=== PATIENT | male | born 1985 | race African-American/Black ===

== ENCOUNTER 2019-07-28 23:08 | Emergency (ER) | payer OTHER ==
[~2019-07-28] VITALS: Ht 180.3 cm; Wt 110.2 kg
[~2019-07-28 23:08] MED LIST: TRAZ-214 PO
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
--- NOTE | 2019-07-28 23:24 | NUR ---
[employer] AT BEDSIDE
[2019-07-28] MEDS ORDERED: TDAP [DIPH/PERTUSSIS/TET] 0.5 ML VIAL IM ONE (23:30)
[2019-07-28] MEDS ORDERED: CEFAZOLIN 1 GM VIAL IM ONE (23:30)
--- NOTE | 2019-07-29 01:04 | NUR ---
ANCEF NOT AVAILABLE. CANCELLED ANCEF AND CHANGED MEDS TO ROCEPHINE 1GM IM X 1. NOTED AND CARRIED OUT
[2019-07-29] MEDS ORDERED: TDAP [DIPH/PERTUSSIS/TET] 0.5 ML VIAL IM ONE (01:06)
[2019-07-29] MEDS ORDERED: CEFTRIAXONE 1 G VIAL ONE (01:06)
[2019-07-29] MEDS ORDERED: LIDOCAINE /MPF 1% VIAL 5 ML VIAL ONE (01:07)
[2019-07-29] MEDS ORDERED: IBUPROFEN 400 MG TABLET ONE (01:21)
--- NOTE | 2019-07-29 01:25 | NUR ---
VERBAL ORDER RECEIVED FROM MD FOR PAIN MEDICATION, IBUPROPHEN 800MG POX 1 DOSE. NOTED AND CARRIED OUT
[2019-07-29] MEDS ORDERED: IBUPROFEN 400 MG TABLET PO ONE (01:30)
[2019-07-29] MEDS ORDERED: CEFTRIAXONE 1 G VIAL IM ONE (01:30)
--- NOTE | 2019-07-29 02:15 | NUR ---
EMT ET BEDSIDE FOR WOUND DRESSING.
--- NOTE | 2019-07-29 03:00 | NUR ---
Patient discharged to home in stable condition. Written and verbal after care instructions given. Patient verbalizes understanding of instruction. Pt ambulatory with a steady gait
[2019-07-29 03:01] VITALS: BP 147/76
== END 2019-07-29 03:03 | disposition home or self-care (01) ==
LOC: ER 23:16
DX: S21.211A Laceration without foreign body of right back wall of thorax without penetration into thoracic cavity, initial encounter (principal); S01.01XA Laceration without foreign body of scalp, initial encounter; I10 Essential (primary) hypertension; K21.9 Gastro-esophageal reflux disease without esophagitis; F32.9 Major depressive disorder, single episode, unspecified; F17.210 Nicotine dependence, cigarettes, uncomplicated; Z98.890 Other specified postprocedural states; Z59.0 Homelessness; Y00.XXXA Assault by blunt object, initial encounter; Y93.89 Activity, other specified; Y92.89 Other specified places as the place of occurrence of the external cause; Y99.8 Other external cause status
CPT/HCPCS: 12002; 70450; 71045; 72128; 72131; 90471; 90715; 96372; 99284; A6403; J0690; J0696; J3490

== ENCOUNTER 2020-01-09 13:48 | Emergency (ER) | payer OTHER ==
[~2020-01-09] VITALS: Ht 170.2 cm; Wt 74.8 kg
[~2020-01-09 13:48] MED LIST changes: -TRAZ-214 PO; +TRAZ-257 PO
--- NOTE | 2020-01-09 14:17 | NUR ---
DR. GALINDO AT [facility] FOR PT EVAL. PT REMOVED FROM ER IN CUSTODY OF DEDRICK AND ADRIEN. AFTER CARE INSTRUCTIONS PROVIDED TO DEDRICK
== END 2020-01-09 14:20 ==
LOC: ER 13:51
DX: S01.01XA Laceration without foreign body of scalp, initial encounter (principal); Z98.890 Other specified postprocedural states; Z59.0 Homelessness; Z79.899 Other long term (current) drug therapy; X58.XXXA Exposure to other specified factors, initial encounter; Y93.89 Activity, other specified; Y92.89 Other specified places as the place of occurrence of the external cause; Y99.8 Other external cause status

== ENCOUNTER 2020-03-23 13:45 | Emergency (ER) | payer OTHER ==
[~2020-03-23] VITALS: Ht 172.7 cm; Wt 99.8 kg
--- NOTE | 2020-03-23 13:55 | NUR ---
patient BIBpd from intermediate, swallowed razor blade, on room air, breathing evenly and unlabored. connected to the monitor and pulse ox. kept comfortable, will continue to monitor accordingly.
--- NOTE | 2020-03-23 14:25 | NUR ---
RN NOTES LAB DRAWN AND SENT TO LAB .
[2020-03-23] MEDS ORDERED: IOHEXOL-300 100 ML VIAL IV ONE (14:34)
[2020-03-23] MEDS ORDERED: IV NS 0.9% 250 ML IV ONE (14:34)
[2020-03-23 15:17] LABS: BASOPHILS % (AUTO) 0.7 % (0.0-2.0); EOSINOPHILS % (AUTO) 0.2 % (0.0-6.0); HEMATOCRIT 38 % (39-51); HEMOGLOBIN 12.3 g/dL (13.5-17.5); LYMPHOCYTES # (AUTO) 0.7 /CMM (0.8-4.8); LYMPHOCYTES % (AUTO) 10.9 % (20.0-44.0); MEAN CORPUSCULAR HGB CONC 33 g/dl (31.0-36.0); MEAN CORPUSCULAR VOLUME 94 fL (80-96); MONOCYTES # (AUTO) 0.4 /CMM (0.1-1.30); MONOCYTES % (AUTO) 6.5 % (2.0-12.0); NEUTROPHILS # (AUTO) 5.3 /CMM (1.8-8.9); NEUTROPHILS % (AUTO) 81.7 % (43.0-81.0); PLATELET COUNT (AUTO) 204 /CMM (150-450); RED BLOOD CELL COUNT(AUTO) 4.01 MIL/uL (4.5-6.0); WHITE BLOOD COUNT (AUTO) 6.5 K/uL (4.3-11.0)
[2020-03-23 15:25] LABS: CALCIUM, SERUM 8.9 mg/dL (8.5-10.1); CREATININE 0.8 mg/dL (0.6-1.3); POTASSIUM 4.4 mmol/L (3.5-5.1)
[2020-03-23 15:30] LABS: ALBUMIN 3.5 g/dL (3.4-5.0); BILIRUBIN,DIRECT 0.1 mg/dL (0.0-0.2); BILIRUBIN,TOTAL 0.2 mg/dL (0.2-1.0); TOTAL PROTEIN, SERUM 6.2 g/dL (6.4-8.2)
--- NOTE | 2020-03-23 17:33 | NUR ---
Grant thomas in [facility] - 03/23/20 at 1736 by CHAVO CALLED [facility]. NO CAPACITY FOR PATIENT. MOVING ON TO [facility].
--- NOTE | 2020-03-23 17:36 | NUR ---
CALLED [facility]. NO CAPACITY FOR PATIENT.
--- NOTE | 2020-03-23 17:46 | NUR ---
[facility].ER CALLED, SPOKE TO SEVERIANO CAMACHO, SHE SAID THAT THEIR ER IS FULL BUT TOOK THE INFO AND REPORT JUST IN CASE THEY CAN ACCOMADATE PATIENT
--- NOTE | 2020-03-23 17:47 | NUR ---
[facility] called-the ER is currently incapacity will call back in 10 minutes
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
--- NOTE | 2020-03-23 17:51 | NUR ---
CALLED [facility] AND SPOKE TO CRISTINA. BOTH SRIRAM STEINBERG AND CY ZAVALA ARE AT CAPACITY. WILL FAX CLINICALS, FACESHEET, AND ED NOTES. WILL CALL BACK WITH ANY UPDATES.
--- NOTE | 2020-03-23 17:53 | NUR ---
[facility] transfer line called; case presented
--- NOTE | 2020-03-23 17:59 | NUR ---
Called [facility] transfer line-no bed capacity to admit or provide care
--- NOTE | 2020-03-23 18:01 | NUR ---
RECIEVED A CALL FROM [facility]. [facility] CANNOT BE ACCEPTED DUE TO NOT HAVING A RETIREMENT RAI.
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
--- NOTE | 2020-03-23 18:08 | NUR ---
Called [facility]; will page the on-call trauma team- Dr. Thorpe
--- NOTE | 2020-03-23 18:12 | NUR ---
Spoke to Dr. Aparicio-Case presented, according to him, this patient is not a trauma and can be managed in the current hospital setting; Dr. Aparicio refused to accept the patient.
[2020-03-23 18:42] VITALS: BP 135/81
--- NOTE | 2020-03-23 18:44 | NUR ---
Patient does not wish to proceed with medical care recommended by Dr. Kam. Patient given information related to possible complications, up to and including , which could occur as a result of leaving the hospital at this time. Patient verbalizes understanding of risks involved due to leaving against medical advice. Patient has signed AMA form. Patient in custody accompanied by [employer] and signed ama form. MD notified. Will go to another hospital.
== END 2020-03-23 18:44 | disposition left against medical advice (07) ==
LOC: ER 13:48
DX: T18.2XXA Foreign body in stomach, initial encounter (principal); X83.8XXA Intentional self-harm by other specified means, initial encounter; Y92.149 Unspecified place in prison as the place of occurrence of the external cause; Z91.5 Personal history of self-harm; F31.9 Bipolar disorder, unspecified; F20.9 Schizophrenia, unspecified; Z59.0 Homelessness; J90 Pleural effusion, not elsewhere classified
CPT/HCPCS: 36415; 71045; 71270; 74178; 80048; 80076; 83690; 85025; 85730; 87426; 99291; J7050; Q9967

== ENCOUNTER 2024-12-12 14:07 | Emergency (ER) | payer OTHER, MEDICAID ==
[~2024-12-12] VITALS: Ht 160 cm; Wt 108.9 kg
[2024-12-12 14:10] VITALS: TEMP 98.4
[2024-12-12] MEDS ORDERED: ACETAMINOPHEN 325 MG TABLET ONE (16:18)
[2024-12-12] MEDS: ACETAMINOPHEN 325 MG TABLET PO ONE (16:25)
[2024-12-12 18:13] VITALS: BP 135/75; O2SAT 98
== END 2024-12-12 18:00 ==
LOC: ER 14:13
DX: M54.50 Low back pain, unspecified (principal); I10 Essential (primary) hypertension; F31.9 Bipolar disorder, unspecified; F17.210 Nicotine dependence, cigarettes, uncomplicated; Z87.19 Personal history of other diseases of the digestive system
CPT/HCPCS: 72131-TC